=== PATIENT | male | born 1990 | race Caucasian/White ===

== ENCOUNTER → 2017-11-08 | Emergency (ER) | payer BC, MEDICAID ==
[~2017-11-08] VITALS: Ht 185.4 cm; Wt 86.0 kg
[~2017-11-08] MED LIST: ONDA4TAB12 PO; insulin regular, human 10 units/0.1 ml syringe SQ ONE
[2017-11-08 16:50] LABS: BASOPHILS % (AUTO) 0.2 % (0-1); EOSINOPHILS # (AUTO) 0.1 X10'3 (0-0.9); HEMATOCRIT 44.2 % (42.0-52.0); HEMOGLOBIN 15.1 g/dl (14.0-17.9); LYMPHOCYTES % (AUTO) 16.3 % (21-51); MEAN CORPUSCULAR HEMOGLOBIN 30.8 PG (27.0-31.0); MEAN CORPUSCULAR HGB CONC 34.1 % (33.0-36.5); MEAN CORPUSCULAR VOLUME 90.4 FL (78-98); MEAN PLATELET VOLUME 8.1 FL (7.4-10.4); MONOCYTES # (AUTO) 0.5 X10'3 (0-0.9); MONOCYTES % (AUTO) 7.9 % (2-12); NEUTROPHILS # (AUTO) 4.6 X10'3 (1.8-7.7); NEUTROPHILS % (AUTO) 73.6 % (42-75); PLATELET COUNT 213 X10'3 (140-440); RED BLOOD COUNT 4.89 X10'6 (4.70-6.10); RED CELL DISTRIBUTION WIDTH 14.2 % (11.5-14.5); WHITE BLOOD COUNT 6.2 X10'3 (4.5-11.0)
[2017-11-08 16:57] LABS: CLARITY,URINE CLEAR (Clear); COLOR,URINE YELLOW (Yellow); GLUCOSE, URINE >=1000 mg/dl (Neg); KETONES,URINE TRACE mg/dl (Neg); LEUKOCYTE ESTERASE ,URINE NEGATIVE (Neg); NITRITES, URINE NEGATIVE (Neg); OCCULT BLOOD,URINE NEGATIVE (Neg); PH,URINE 6.5 (4.8-8.0); PROTEIN,URINE NEGATIVE (Neg); UA COLLECTION TYPE CLN CATCH MIDSTREAM; UROBILINOGEN,URINE 0.2 E.U/dL (0.2-1.0)
[2017-11-08 16:58] LABS: BACTERIA,URINE NONE SEEN /HPF (Neg); MUCUS STRANDS NONE SEEN /LPF (Neg); RBC,URINE NONE SEEN /HPF (0-2); SQUAMOUS EPITHELIAL CELL,UR NONE SEEN /LPF (FEW); WBC,URINE 0-4 /HPF (0-4)
[2017-11-08 17:04] LABS: ALANINE AMINOTRANSFERASE 36 U/L (12-78); ALBUMIN 4.2 G/DL (3.4-5.0); ALBUMIN/GLOBULIN RATIO 1.5 (1.1-1.5); ALKALINE PHOSPHATASE 58 IU/L (46-116); ANION GAP 5 (8-16); ASPARTATE AMINO TRANSFERASE 21 U/L (10-37); BILIRUBIN,TOTAL 1.7 MG/DL (0.1-1.0); BLOOD UREA NITROGEN 15 MG/DL (7-18); BUN/CREATININE RATIO 12.8 (5.4-32.0); CALCIUM 9.1 MG/DL (8.5-10.1); CHLORIDE 102 MMOL/L (99-107); CREATININE 1.17 MG/DL (0.60-1.10); GLUCOSE 347 MG/DL (70-104); POTASSIUM 4.6 MMOL/L (3.5-5.1); SODIUM 138 MMOL/L (135-145); TOTAL CARBON DIOXIDE 31.3 MMOL/L (24-32); eGFR 75 ML/MIN
[2017-11-08 17:24] VITALS: BP 139/85
== END | disposition home or self-care (01) ==
LOC: ER 16:00
DX: E11.65 Type 2 diabetes mellitus with hyperglycemia (principal); F17.210 Nicotine dependence, cigarettes, uncomplicated
CPT/HCPCS: 36415; 80053; 81001; 82948; 85025; 96372; 99284; J1815; J7030

== ENCOUNTER 2020-09-26 10:27 | Emergency (ER) | payer MEDICAID, OTHER ==
[~2020-09-26] VITALS: Ht 182.9 cm; Wt 95.5 kg
[~2020-09-26 10:27] MED LIST changes: -insulin regular, human 10 units/0.1 ml syringe SQ ONE
[2020-09-26] MEDS ORDERED: TETanus/Pertussis (Acell)/Diphther VAC/PF (Tdap-Adult) 0.5ml syringe IMVAC ONE (11:25)
[2020-09-26] MEDS ORDERED: LIDOcaine 1% W/epiNEPHrine 1:200,000 10ml vial IJ ONE (11:25)
--- NOTE | 2020-09-26 11:42 | NUR ---
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
--- NOTE | 2020-09-26 12:06 | NUR ---
Lui CARVAJAL PA AT BEDSIDE TO REMOVE NAIL TO LEFT HAND, PT RACHELL WELL
[2020-09-26] MEDS ORDERED: ceFAZolin 1gm IM kit IM ONE (12:40)
[2020-09-26] MEDS ORDERED: HYDR-3965 PO (12:51)
[2020-09-26] MEDS ORDERED: CEPH-585 PO (12:51)
[2020-09-26 13:23] VITALS: BP 113/72
== END 2020-09-26 13:27 | disposition home or self-care (01) ==
LOC: ER 10:27
DX: S62.351A Nondisplaced fracture of shaft of second metacarpal bone, left hand, initial encounter for closed fracture (principal); S60.552A Superficial foreign body of left hand, initial encounter; E11.9 Type 2 diabetes mellitus without complications; Z20.3 Contact with and (suspected) exposure to rabies; Z79.2 Long term (current) use of antibiotics; Z79.899 Other long term (current) drug therapy; X58.XXXA Exposure to other specified factors, initial encounter; Y93.89 Activity, other specified; Y92.89 Other specified places as the place of occurrence of the external cause; Y99.8 Other external cause status
CPT/HCPCS: 73130; 90471; 90715; 96372; 99284; J0690